=== PATIENT | male | born 1930 | race Asian ===

== ENCOUNTER 2017-08-17 18:34 | Inpatient (IN) | END 2017-08-31 10:22 | DRG 25 ==

== ENCOUNTER 2017-08-31 11:03 | Inpatient (IN) | END 2017-09-12 15:00 | disposition home health service (06) | DRG 64 ==

== ENCOUNTER 2018-06-04 20:46 | Emergency (ER) | END 2018-06-04 21:45 | disposition home or self-care (01) ==